=== PATIENT | male | born 1960 | race African-American/Black ===

== ENCOUNTER 2022-07-09 01:02 | Emergency (ER) | payer MEDICAID ==
[~2022-07-09] VITALS: Ht 177.8 cm; Wt 77.1 kg
[2022-07-09 01:09] VITALS: BP 178/87
--- NOTE | 2022-07-09 01:29 | NUR ---
Dr. Marshall examining patient.
[2022-07-09] MEDS ORDERED: DEXAMETHASONE 10 MG/ML VIAL ONE (01:38)
[2022-07-09] MEDS: DEXAMETHASONE 0.5 MG/5 ML ORASYR PO ONE (01:39)
--- NOTE | 2022-07-09 01:39 | NUR ---
PT SWABBED FOR COVID
--- NOTE | 2022-07-09 01:40 | NUR ---
PT TAKEN TO XRAY
--- NOTE | 2022-07-09 01:44 | NUR ---
PT RETURN FROM XRAY
[2022-07-09] MEDS ORDERED: MUC600 PO (02:07)
[2022-07-09] MEDS ORDERED: MENT7.6L6 PO (02:07)
--- NOTE | 2022-07-09 02:23 | NUR ---
Patient discharged with v/s stable. Written and verbal after care instructions given and explained. Patient alert, oriented and verbalized understanding of instructions. Ambulatory with steady gait. All questions addressed prior to discharge. ID band removed. Patient advised to follow up with PMD. Rx of CEPACOL given. Patient educated on indication of medication including possible reaction and side effects. Opportunity to ask questions provided and answered.
== END 2022-07-09 02:23 | disposition home or self-care (01) ==
LOC: MED 01:02
DX: R09.89 Other specified symptoms and signs involving the circulatory and respiratory systems (principal); Z20.822 Contact with and (suspected) exposure to COVID-19; R06.7 Sneezing; R05.9 Cough, unspecified; Z79.899 Other long term (current) drug therapy
CPT/HCPCS: 70360; 99283; J1100

== ENCOUNTER 2023-05-29 05:20 | Emergency (ER) | payer MEDICAID ==
[~2023-05-29] VITALS: Ht 185.4 cm; Wt 99.8 kg
[~2023-05-29 05:20] MED LIST: MENT7.6L6 PO; MUC600 PO
[2023-05-29 05:30] VITALS: BP 162/86; PULSE 63; RESP 17; TEMP 97.7; O2SAT 99
[2023-05-29 07:30] VITALS: O2SAT 99
[2023-05-29] MEDS ORDERED: IBUP-2213 PO (07:50)
[2023-05-29 08:12] VITALS: BP 133/26; PULSE 63; RESP 17; TEMP 97.7; O2SAT 99
== END 2023-05-29 07:57 | disposition home or self-care (01) ==
LOC: MED 05:20
DX: S89.81XA Other specified injuries of right lower leg, initial encounter (principal); H92.02 Otalgia, left ear; Z79.899 Other long term (current) drug therapy; W01.198A Fall on same level from slipping, tripping and stumbling with subsequent striking against other object, initial encounter; Y93.89 Activity, other specified; Y92.89 Other specified places as the place of occurrence of the external cause; Y99.8 Other external cause status
CPT/HCPCS: 73562; 93971; 99284; Q0092

== ENCOUNTER 2023-07-07 22:07 | Emergency (ER) | payer MEDICAID ==
[~2023-07-07] VITALS: Ht 185.4 cm; Wt 99.8 kg
[~2023-07-07 22:07] MED LIST changes: +IBUP-2213 PO
[2023-07-07 22:25] VITALS: BP 161/80; PULSE 67; RESP 17; TEMP 98.1; O2SAT 99
[2023-07-07] MEDS ORDERED: BUPIVACAINE-MPF 0.25% 30 ML VIAL INJ ONE (23:35)
[2023-07-07] MEDS ORDERED: ACET-8905 PO (23:55)
[2023-07-08 00:14] VITALS: BP 161/80; PULSE 67; RESP 17; TEMP 98.1; O2SAT 99
== END 2023-07-08 00:14 | disposition home or self-care (01) ==
LOC: MED 22:07
DX: K08.89 Other specified disorders of teeth and supporting structures (principal); Z79.899 Other long term (current) drug therapy; Z79.1 Long term (current) use of non-steroidal anti-inflammatories (NSAID)
CPT/HCPCS: 64400; 99284; J3490